=== PATIENT | male | born 1955 | race Caucasian/White ===

== ENCOUNTER 2022-06-03 10:56 | Observation (INO) | payer OTHER ==
[2022-06-03 11:11] VITALS: BMI 25.0
[2022-06-03] MEDS ORDERED: ACETAMINOPHEN 1000 MG/100 ML BAG IVPB ONE (11:56)
[2022-06-03] MEDS ORDERED: ACETAMINOPHEN INJECTION 100 ML IVPB ONE (12:18)
[2022-06-03 12:24] LABS: BASO % 1.2 % (0-2.0); EOS % 2.5 % (0-4.5); HEMATOCRIT 41.6 % (35.4-49); HEMOGLOBIN 14.7 GM/dL (11.7-16.9); LYMPH % 37.1 % (8-40); MCH 32.1 pg (25.7-33.7); MCHC 35.4 g/dl (32.0-35.9); MEAN CELL VOLUME 90.8 fl (80-96); MEAN PLT VOLUME 9.3 fl (7.5-11.1); MONO % 7.8 % (3.8-10.2); NEUT % 51.4 % (42.8-82.8); PLATELET COUNT 175 10^3/uL (134-434); RBC 4.59 M/mm3 (4.00-5.60); RDW 13.4 % (11.9-15.9); WHITE BLOOD COUNT 6.9 K/mm3 (4.0-10.0)
[2022-06-03 12:35] LABS: ACTIVATED PTT 32.4 SECONDS (25.2-36.5); INR 1.04 (0.83-1.09); PROTHROMBIN TIME (PATIENT) 12.1 SEC (9.7-13.0)
[2022-06-03 12:52] LABS: CALCIUM 9.6 mg/dL (8.5-10.1)
[2022-06-03 12:53] LABS: BLOOD UREA NITROGEN 16.3 mg/dL (7-18)
[2022-06-03 12:56] LABS: CREATININE 1.1 mg/dL (0.55-1.3)
[2022-06-03 12:58] LABS: TOT PROT 7.4 g/dl (6.4-8.2)
[2022-06-03] MEDS ORDERED: ASPIRIN 81 MG CHEWABLE TABLETS PO ONE (13:55)
[2022-06-03] MEDS ORDERED: ASPIRIN COATED 81 MG TABLET.EC ONE (14:14)
[2022-06-03] MEDS: INSULIN SLIDING SCALE (NOVOLOG) 1 VIAL SQ SCH ×2 (16:36→21:43)
[2022-06-03] MEDS: SODIUM CHLORIDE 1,000 ML IV SCH (16:37)
[2022-06-03 16:42] LABS: PH,URINE 5.5 (5.0-8.0); URINE APPEARANCE CLEAR; URINE BILIRUBIN NEGATIVE (NEGATIVE); URINE COLOR DK YELLOW; URINE GLUCOSE (UA) NEGATIVE (NEGATIVE); URINE KETONE NEGATIVE (NEGATIVE); URINE LEUK ESTERASE NEGATIVE (NEGATIVE); URINE NITRITE NEGATIVE (NEGATIVE); URINE PROTEIN NEGATIVE (NEGATIVE); URINE UROBILINOGEN 0.2 mg/dL (0.2-1.0)
[2022-06-03] MEDS ORDERED: PNEUMOC 20-VAL CONJ-DIP CRM/PF 0.5 ML SYRINGE IM ONE (16:56)
[2022-06-04] MEDS: INSULIN SLIDING SCALE (NOVOLOG) 1 VIAL SQ SCH ×2 (06:18→13:09)
[2022-06-04] MEDS: SODIUM CHLORIDE 1,000 ML IV SCH (06:19)
[2022-06-04 07:02] VITALS: BP 110/60; PULSE 60; RESP 20; TEMP 98
[2022-06-04 08:08] LABS: CALCIUM 8.8 mg/dL (8.5-10.1)
[2022-06-04 08:09] LABS: ALBUMIN 3.4 g/dl (3.4-5.0); BLOOD UREA NITROGEN 16.7 mg/dL (7-18)
[2022-06-04 08:12] LABS: CREATININE 0.9 mg/dL (0.55-1.3); PHOSPHOROUS 3.5 mg/dL (2.5-4.9)
[2022-06-04 08:13] LABS: TOT PROT 6.4 g/dl (6.4-8.2)
[2022-06-04 08:14] LABS: BILIRUBIN,TOTAL 1.2 mg/dL (0.2-1)
[2022-06-04 08:41] LABS: BASO % 1.1 % (0-2.0); HEMATOCRIT 38.2 % (35.4-49); HEMOGLOBIN 13.3 GM/dL (11.7-16.9); LYMPH % 28.3 % (8-40); MCH 31.7 pg (25.7-33.7); MCHC 34.7 g/dl (32.0-35.9); MEAN CELL VOLUME 91.3 fl (80-96); MEAN PLT VOLUME 9.9 fl (7.5-11.1); MONO % 7.5 % (3.8-10.2); NEUT % 59.1 % (42.8-82.8); PLATELET COUNT 156 10^3/uL (134-434); RBC 4.19 M/mm3 (4.00-5.60); RDW 13.5 % (11.9-15.9); WHITE BLOOD COUNT 7.5 K/mm3 (4.0-10.0)
[2022-06-04] MEDS ORDERED: ENOXAPARIN NA (PORCINE) 40 MG/0.4 ML DISP.SYRIN SQ SCH (10:00)
[2022-06-04] MEDS ORDERED: ENALAPRIL MALEATE 5 MG TABLET PO SCH (10:00)
[2022-06-04] MEDS ORDERED: REGADENOSON 0.4 MG/5 ML PRE-FILLED SYRINGE IVPUSH ONE ×2 (10:03→10:15)
[2022-06-04] MEDS ORDERED: ATORVASTATIN CA 40 MG TABLET (FP) PO ONE (11:37)
[2022-06-05] MEDS ORDERED: ATORVASTATIN CA 40 MG TABLET (FP) PO SCH (22:00)
== END 2022-06-04 14:28 | disposition home or self-care (01) ==
LOC: JER 10:56 → JERBED 13:39 → J4W 15:40
PROVIDERS: ADMIT Internal Medicine; ATTEND Internal Medicine
PROC: 3E033NZ Introduction of Analgesics, Hypnotics, Sedatives into Peripheral Vein, Percutaneous Approach (ICD-10-PCS; principal; 2022-06-03)
PROC: 3E023GC Introduction of Other Therapeutic Substance into Muscle, Percutaneous Approach (ICD-10-PCS; 2022-06-03)
PROC: 3E0234Z Introduction of Serum, Toxoid and Vaccine into Muscle, Percutaneous Approach (ICD-10-PCS; 2022-06-03)
PROC: 3E033GC Introduction of Other Therapeutic Substance into Peripheral Vein, Percutaneous Approach (ICD-10-PCS; 2022-06-03)
PROC: 3E0337Z Introduction of Electrolytic and Water Balance Substance into Peripheral Vein, Percutaneous Approach (ICD-10-PCS; 2022-06-03)
DX: R07.89 Other chest pain (principal); E78.5 Hyperlipidemia, unspecified; E11.9 Type 2 diabetes mellitus without complications; Z29.8 Encounter for other specified prophylactic measures; R42 Dizziness and giddiness
CPT/HCPCS: 0241U-QW; 36415; 71046-TC-FY; 78452-TC; 80053; 80061; 81003; 82962; 83036; 83735; 84100; 84484; 85025; 85610; 85730; 87086; 90677; 93005; 93010; 93017; 93306-TC; 96361; 96372; 96374; 96375; 99285-25; A9502; G0009; G0378; J2785